=== PATIENT | male | born 1980 | race Caucasian/White ===

== ENCOUNTER 2021-03-22 19:10 | Emergency (ER) | payer BC, OTHER ==
[2021-03-22] MEDS ORDERED: Lidocaine 1% 20 ML MDV INFILT ONE (19:11)
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
[2021-03-22] MEDS ORDERED: Diphtheria,Pertussis(Acell),Tetanus Vaccine 0.5 ML Syringe IM ONE (20:02)
== END 2021-03-22 20:25 | disposition home or self-care (01) ==
LOC: FB.ED 19:10
DX: S61.412A Laceration without foreign body of left hand, initial encounter (principal); Z23 Encounter for immunization; W26.0XXA Contact with knife, initial encounter
CPT/HCPCS: 12001; 90471; 90715; 99283-25